=== PATIENT | female | born 1985 | race Caucasian/White ===

== ENCOUNTER 2017-05-31 16:29 | Emergency (ER) | payer BC ==
[~2017-05-31] VITALS: Ht 175.3 cm; Wt 97.5 kg
--- NOTE | 2017-05-31 16:54 | Emergency Room Report ---
History of Present Illness General Chief Complaint: Flu Like Symptoms Source: Patient Present Illness HPI 31 yo female patient presents to ER complaining of cough and sore throat x3 days. Reports sore throat and BATISTA presented following cough symptoms. Complains of subjective chills. Reports dry cough, no blood in sputum. Also complains of runny nose, reports hx of allergies. Denies epistaxis. Also complains of BATISTA since onset of sore throat symptoms. Reports hx of sick contacts. Reports pain with swallowing. Denies fever, chest pain, SOB, nausea, vomiting, diarrhea, dysuria, rash, neck pain, travel. Reports currently in rehab for drug abuse. Reports smokes from vaping pen, not cigarettes. Denies hx of STI. Allergies: Coded Allergies: No Known Allergies (Unverified , 05/31/17) Patient History Past Medical History: see triage record Last Menstrual Period: last week Now: No Reviewed Nursing Documentation: PMH: Agreed; PSxH: Agreed Nursing Documentation-PMH Past Medical History: No Stated History Review of Systems All Other Systems: negative except mentioned in HPI Physical Exam Vital Signs Date Time Temp Pulse Resp B/P (MAP) Pulse Ox O2 Delivery O2 Flow Rate FiO2 05/31/17 16:34 97.9 58 18 117/79 98 Room Air 97.9 Sp02 EP Interpretation: reviewed, normal General Appearance: well appearing, no apparent distress, alert, GCS 15, non- toxic Head: normocephalic, atraumatic Eyes: bilateral eye normal inspection, bilateral eye PERRL ENT: hearing grossly normal, normal pharynx, no angioedema, normal voice, TMs + canals normal, uvula midline, moist mucus membranes, nasal congestion - dried blood in nasal cavity, pharyngeal erythema, other - no exudates, no swelling, no uvula deviation Neck: full range of motion, no bony tend Respiratory: lungs clear, normal breath sounds, no rhonchi, no respiratory distress, no accessory muscle use, no wheezing, speaking full sentences, other - no stridor Cardiovascular #1: regular rate, rhythm, no edema Gastrointestinal: non tender, soft, no mass, non-distended, no guarding, no rebound Genitourinary: no CVA tenderness Musculoskeletal: back normal, digits/nails normal, gait/station normal, normal range of motion, non-tender, no calf tenderness Neurologic: alert, oriented x3, responsive, motor strength/tone normal, sensory intact, other - negative Kernig, negative Brudzinski Psychiatric: mood/affect normal Skin: no rash Lymphatic: no adenopathy Medical Decision Making PA Attestation Dr. Kumar is my supervising Physician whom patient management has been discussed with. Diagnostic Impression: Primary Impression: Sore throat Additional Impression: Upper respiratory infection ER Course Pt presents to ED c/o sore throat and chills x3 days. DDX considered but are not limited to pharyngitis, laryngitis, URI, peritonsillar abscess, tonsillitis, otitis media. Low suspicion for peritonsillar abscess, no neck stiffness, no hot potato voice , no stridor, no uvula deviation. Low suspicion for meningitis, negative Kernig, negative Brudzinski No hemoptysis, no calf swelling, no recent travel, low suspicion for PE per [facility] Criteria. Patient does not require labs or imaging at this time. VITAL SIGNS are WNL, patient is afebrile. ORDERS: -Dexamethasone -Viscous Lidocaine ER COURSE: PE benign: pharyngeal erythema, no tonsillar exudates, non-erythematous TM, moist mucus membranes. Patient declined medication in ER. States wants to be discharged to home. Informed likely viral cause of symptoms, supportive and symptomatic treatment at home; no Tamiflu, over 2 days since onset of symptoms. Provided with note stating seen and treated in ER. Don't smoke. Vaping counts as smoking. Patient resting comfortably, in no acute distress, nontoxic appearing, talking without difficulty. Followup with STI clinic if concern for STI. No symptoms currently in ER, states in monogamous relationship, does not use condoms. DISCHARGE: Rx provided for Flonase. Do not use longer than 3 days, will lead to rhinitis medicamentosa. Rx provided for Promethazine DM for cough Rx provided for Tylenol for pain and fever symptoms Salt water gargles. At this time pt is stable for d/c to home. Patient is resting comfortably, in no acute distress, nontoxic appearing, talking without difficulty. Will provide with patient care instructions and any necessary prescriptions. Patient to take medication as instructed. Care plan and follow-up instructions provided. Patient questions asked and answered. Patient instructed to follow-up with primary care provider in 3 - 5 days. ER precautions given. Patient instructed to return to ER immediately for any new or worsening of symptoms. Last Vital Signs Date Time Temp Pulse Resp B/P (MAP) Pulse Ox O2 Delivery O2 Flow Rate FiO2 05/31/17 16:34 97.9 58 18 117/79 98 Room Air 97.9 Disposition: HOME, SELF-CARE Condition: Stable Scripts Fluticasone Propionate (Flonase Allergy Relief) 9.9 Ml [place].susp 9.9 ML NS BID for 3 Days, SPR Prov: Tyler Hall 05/31/17 D-Methorphan Hb/Prometh Hcl* (PROMETHAZINE-DM SYRUP*) 118 Ml Syrup 5 ML ORAL Q6H PRN for For Cough for 7 Days, #118 ML 0 Refills Prov: Tyler Hall 05/31/17 Acetaminophen* (TYLENOL EXTRA STRENGTH*) 500 Mg Tablet 500 MG ORAL Q8H PRN for Prn Headache/Temp > 101, #30 TAB 0 Refills Prov: Tyler Hall 05/31/17 Patient Instructions: Sore Throat, [id number], Upper Respiratory Infection, Adult, [id number] Additional Instructions: Followup with primary care provider in 3 -5 days. Take medications as directed. Patient questions asked and answered. ER precautions given, patient instructed to return to ER immediately for any new or worsening of symptoms including but not limited to fever >5 days, intractable vomiting, chest pain, SOB. Tyler Hall May 31, 2017 16:54
[2017-05-31] MEDS ORDERED: TYLENOL EXTRA500 MG ORAL (17:08)
[2017-05-31] MEDS ORDERED: FLONASE ALLERG9.9 ML NS (17:08)
[2017-05-31] MEDS ORDERED: PROMETHAZINE-D118 ML ORAL (17:08)
[2017-05-31] MEDS: Dexamethasone 4mg/ml vial IM ONE ×2 (17:16→17:24)
[2017-05-31] MEDS: Lidocaine 2% Visc 15ml soln ORAL ONE ×2 (17:16→17:24)
[2017-05-31 17:25] VITALS: BP 122/71
== END 2017-05-31 17:25 | disposition home or self-care (01) ==
LOC: EMR 17:06
DX: J02.9 Acute pharyngitis, unspecified (principal); J06.9 Acute upper respiratory infection, unspecified
CPT/HCPCS: 99284